=== PATIENT | female | born 1985 | race Caucasian/White ===

== ENCOUNTER → 2018-10-08 08:01 | Outpatient (CLI) | payer MEDICARE, MEDICAID ==
--- NOTE | 2018-10-18 08:42 | ST ---
PATIENT:ANDREW BYRD MEDICAL RECORD: [id number] SEX: F LOCATION:[facility] ORDER #: ADMISSION DATE: 10/08/18 AGE OF PATIENT: 33 REFERRING PHYSICIAN: INTERPRETING PHYSICIAN: MNOY BURGOS MD DATE OF SERVICE: 10/08/2018 PROCEDURE: Treadmill stress test. Baseline ECG is normal. Exercised for 4 minutes under Fredy protocol. Maximum heart rate is 167 beats per minute, achieved greater than 85% of max predicted. No ECG changes for ischemia. Test terminated due to shortness of breath. Poor exercise tolerance for age, indeterminate treadmill. TRANSINT:[id number] Voice Confirmation ID: [id number] DOCUMENT ID: [id number] MONY BURGOS MD at 0842 CC: [id number] DICTATION DATE: 10/09/18 1302 SOLO MUSICIAN: 10/09/18 1314 DEP CLI 10/08/[address] [id number]
== END | disposition home or self-care (01) ==
LOC: D.HCCARDIO 08:01
PROVIDERS: ATTEND Internal Medicine Interventional Cardiology
DX: R00.0 Tachycardia, unspecified (principal)

== ENCOUNTER → 2018-10-11 08:04 | Outpatient (CLI) | payer MEDICARE, MEDICAID ==
--- NOTE | 2018-10-18 08:42 | EC ---
PATIENT:ANDREW BYRD DATE OF SERVICE: 10/11/18 SEX: F MEDICAL RECORD: [id number] DATE OF : [birth year] LOCATION:[facility] AGE OF PATIENT: 33 ADMISSION DATE: 10/11/18 REFERRING PHYSICIAN: INTERPRETING PHYSICIAN: MONY BURGOS MD ECHOCARDIOGRAM REPORT ECHO CHARGES 4 ECHO COMPLETE Date: 10/11/18 CLINICAL DIAGNOSIS: CLEMENTE/PALPITATIONS/TACHYCARDIA/ MURMUR ECHOCARDIOGRAPHIC MEASUREMENTS (adult normal given) AC root (d.<3.7cm) 2.9 cm LV Septum d (<1.2 cm> 0.9 cm Valve Excursion 1.8 cm LV Septum (systole) 1.2 cm Left Atria (s.<4.0cm> 4.2 cm LVPW d(<1.2cm) 1.1 cm RV (d.<2.3cm) 2.1 cm LVPW (sytole) 1.8 cm LV diastole(<5.6CM) 5.6 cm MV E-F(>70mm/sec) cm LV systole 3.2 cm LVOT Diameter 1.8 cm MV exc.(>10mm) cm Est.ejection fraction (50-75%) % DOPPLER: LVIT cm/sec A 55.0 cm/sec E 97.0 cm/sec LA cm/sec RVSP 17.0 mmHg LVOT 91.0 cm/sec AOP1/2T m/s Asc. 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 Sierra TAPE# PACS Pericardial Effusion N DATE OF SERVICE: Adequate 2D, color flow imaging, spectral Doppler, and M-Mode No LVH. LV internal dimension is normal. Wall motion is normal. EF is greater than or equal to 55%. Aortic valve is tricuspid. No evidence of stenosis by Doppler interrogation. Left atrium is normal. Mitral valve shows no prolapse. Trace MR. Right-sided chambers are grossly normal. Trace TR. TRANSINT:[id number] Voice Confirmation ID: [id number] DOCUMENT ID: [id number] ECHOCARDIOGRAM REPORT [id number] ANDREW BYRD,MONY Pickett MD at 0842 CC: [id number] DICTATION DATE: 10/16/18 1227 CHEMICAL PLANT MANAGER: 10/16/18 1249 DEP CLI 10/11/18 [place] [id number] [place] [id number]
== END | disposition home or self-care (01) ==
LOC: D.HCCARDIO 08:04
PROVIDERS: ATTEND Internal Medicine Interventional Cardiology
DX: R01.1 Cardiac murmur, unspecified (principal)

== ENCOUNTER → 2018-10-25 08:31 | Outpatient (CLI) | payer MEDICARE, MEDICAID ==
--- NOTE | 2018-10-28 11:24 | ST ---
PATIENT:ANDREW BYRD MEDICAL RECORD: [id number] SEX: F [facility] ORDER #: ADMISSION DATE: 10/25/18 AGE OF PATIENT: 33 REFERRING PHYSICIAN: INTERPRETING PHYSICIAN: CASSIUS CALZADA MD DATE OF SERVICE: 10/25/2018 INDICATION: Chest pain, abnormal ECG, stress test, and shortness of breath. She was exercised on standard Lexiscan protocol with 32 mCi of sestamibi injected at peak stress, 11 mCi used previously for rest images. FINDINGS: Gated SPECT reveals preserved ejection fraction at 77% with good wall motion and thickening and brightening throughout all segments. SPECT imaging Cardiolite was used as myocardial fusion agent. There is homogeneous uptake throughout all segments at rest and stress with no evidence of inducible ischemia or previous infarction. OVERALL IMPRESSION: 1. This is a normal nuclear stress test with no evidence of inducible ischemia or previous infarction. 2. Gated SPECT reveals a preserved ejection fraction at 77%. In this patient with ongoing symptomatology, the current scan does not suggest the presence of hemodynamically significant coronary artery disease. Evaluate noncardiac etiology of chest pain. TRANSINT:[id number] Voice Confirmation ID: [id number] DOCUMENT ID: [id number] CASSIUS CALZADA MD at 1124 CC: CAROL PICHARDO APRN [id number] DICTATION DATE: 10/26/18 1438 OYSTER PLANTER: 10/27/18 0000 DEP CLI 10/25/18 [place] [id number] [place] [address]
== END | disposition home or self-care (01) ==
LOC: D.HCCARDIO 10-24 08:30
PROVIDERS: ATTEND Internal Medicine Interventional Cardiology
DX: R07.9 Chest pain, unspecified (principal); R06.02 Shortness of breath

== ENCOUNTER → 2020-07-21 06:24 | Outpatient (CLI) | payer MEDICARE, MEDICAID ==
[2020-02-25 12:24] VITALS: BMI 46.6
[~2020-07-21 06:24] MED LIST: ALDACTONE25 MG PO; COZAAR25 MG PO; FLORINEF 0.1 M0.1 MG PO; LANOXIN125 MCG PO; PROPRANOLOL HCL20 MG PO; PROTONIX40 MG PO; SPRINTEC 28 DA1 EAC1 PO; TRAZODONE HCL150 MG PO; VENTOLIN HFA [SP8 GM INH; ZANAFLEX4 MG PO; ZOVIRAX200 MG PO
[2020-07-21 07:02] LABS: ALBUMIN 2.8 g/dL (3.4-5.0); BILIRUBIN - DIRECT 0.09 mg/dL (0.00-0.30); BILIRUBIN - INDIRECT 0.22 mg/dL (0.00-1.00); BILIRUBIN - TOTAL 0.31 mg/dL (0.2-1.3)
== END | disposition home or self-care (01) ==
LOC: D.US 06:24
PROVIDERS: ATTEND Internal Medicine Gastroenterology
DX: K76.0 Fatty (change of) liver, not elsewhere classified (principal)

== ENCOUNTER → 2020-08-10 07:38 | Outpatient (CLI) | payer MEDICARE, MEDICAID ==
[2020-02-25 12:24] VITALS: BMI 46.6
== END | disposition home or self-care (01) ==
LOC: D.MRI 07:38
PROVIDERS: ATTEND Internal Medicine Gastroenterology
DX: K76.9 Liver disease, unspecified (principal); R93.2 Abnormal findings on diagnostic imaging of liver and biliary tract; R11.2 Nausea with vomiting, unspecified; R10.84 Generalized abdominal pain; R52 Pain, unspecified

== ENCOUNTER → 2020-08-14 10:34 | Outpatient (CLI) | payer MEDICARE, MEDICAID ==
[2020-02-25 12:24] VITALS: BMI 46.6
== END | disposition home or self-care (01) ==
LOC: D.NM 10:34
PROVIDERS: ATTEND Internal Medicine Gastroenterology
DX: K76.9 Liver disease, unspecified (principal); R93.2 Abnormal findings on diagnostic imaging of liver and biliary tract; R11.2 Nausea with vomiting, unspecified; R10.84 Generalized abdominal pain; R52 Pain, unspecified